=== PATIENT | female | born 1960 | race Caucasian/White ===

== ENCOUNTER 2024-03-31 15:05 | Inpatient (IN) | payer OTHER, SELFPAY ==
[2024-03-31 11:14] VITALS: BP 155/88
[2024-03-31 11:38] LABS: Hematocrit 40.9 % (37.0-47.0); Hemoglobin 14.2 g/dL (12.0-16.0); Mean Corp Hgb Conc. 34.7 g/dL (33.0-37.0); Mean Corpuscular Hgb 28.8 pg (27.0-31.0); Mean Platelet Volume 10.4 fL (7.4-10.4); Platelet Count 208 10^3/uL (130-400); Red Blood Cell Count 4.93 10^6/uL (4.20-5.40); Red Cell Dist. Width 14.2 % (11.5-14.5); White Blood Cell Count 46.4 10^3/uL (4.8-10.8)
[2024-03-31 11:55] LABS: ALT (SGPT) 20 U/L (0-35); AST (SGOT) 23 U/L (14-36); Albumin 4.6 g/dl (3.5-5.0); Alkaline Phosphatase 94 U/L (38-126); Blood Urea Nitrogen 18 mg/dl (7-17); Calcium 9.9 mg/dl (8.4-10.2); Carbon Dioxide 25 mmol/L (22-30); Chloride 108 mmol/L (98-107); Glucose 123 mg/dl (70-99); Potassium 3.7 mmol/L (3.5-5.1); Sodium 140 mmol/L (135-145); Total Bilirubin 0.6 mg/dl (0.2-1.3); Total Protein 7.1 g/dl (6.3-8.2); eGFR > 60.00
[2024-03-31 11:58] LABS: Troponin I < 0.012 ng/ml
[2024-03-31 12:13] LABS: Absolute Neutrophils -Man Diff 7.8 10^3/uL (1.4-6.5); Atypical Lymphocytes 14 %; Band Neutrophils 0 % (0-3); Eosinophils 1 % (0-6); Lymphocytes 66 % (20-51); Monocytes 2 % (2-9); Normal RBC Morphology Yes; Platelets Checked Yes; Segmented Neutrophils 17 % (42-75); Total Cells Counted 100
[2024-03-31 12:50] VITALS: BMI 29.6
--- NOTE | 2024-03-31 13:41 | ED.GENMED ---
History of Present Illness
General
Chief Complaint: Headache
Source: patient
Exam Limitations: none
Time Seen by Provider: 03/31/24 12:49
Nursing documentation reviewed up to this point in time: agreed with
History of Present Illness
History of Present Illness:
Patient with history of CLL, diagnosed 4 years ago, not requiring treatment, being followed with serial blood work, presents ED secondary to 2-week history of persistent right-sided/frontal headache along with difficulty walking noted over the past
24 hours, by her daughter. Patient has taken Excedrin headache medication as an outpatient, with minimal relief in symptoms. Denies blurred vision. Denies loss of sensation or weakness. Denies difficulty with speech. Denies nausea or vomiting.
Review of Systems
Review of Systems
Allergies reviewed?: Yes
All Other Systems: ROS reviewed and negative except as documented in HPI and ROS
Constitutional: Reports no symptoms
Respiratory: Reports no symptoms
Cardiac: Reports no symptoms
ABD/GI: Reports no symptoms
Musculoskeletal: Reports no symptoms
Skin: Reports no symptoms
Neurological: Reports headache
Phy Exam
Physical Exam
Physical Exam:
Physical Exam
General: no apparent distress, not acutely ill. afebrile
Head: nc/at. eomi
Neck: supple. no meningeal signs.
Heart: s1/s2 regular rate and rhythm, no murmur. equal radial pulses.
Lungs: no acute respiratory distress. clear bilaterally
Abdomen: normal bowel sounds. not tender.
Neuro: alert and oriented. no focal neurological deficits. normal speech
Skin: no rash
Psychiatric: well kept. interactive and cooperative
Extremities: no edema. no calf tenderness.
Course
Orders/Labs/Results
Orders:
Orders
03/31/24 11:17
Electrocardiogram (*1) Urgent
Reason for Study: Vertigo / Dizzy
CT Head W/o Iv Contrast Urgent
Comment:
Reason For Exam: dizziness
03/31/24 11:18
EKG- Treatment ONCE
03/31/24 11:28
Complete Blood Count/With Diff Urgent
Comprehensive Metabolic Panel Urgent
Manual Differential Urgent
Troponin I Urgent
03/31/24 13:41
Dexamethasone Sod Phosphate [Decadron] 10 mg IV NOW STA
03/31/24 13:43
LDH Urgent
03/31/24 14:37
Admit/Transfer Patient As Directed
Co-Sign Provider:
Level of Care: Inpatient admission
Assign to:: Medical/Surgical
Physician / Group: Alin Diego
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
Expected length of stay greater than two midnights?: Yes
ELOS- Estimated Length of Stay in days: 3
I certify the patient meets the requirements for IP care: Yes
03/31/24 14:39
Code Status As Directed
Resuscitation Status: Full Code
03/31/24 14:46
ONCOLOGY CONSULT Routine
Consulting Provider: Mika Nagel
Was physician already notified: Yes
Reason for consult: metastatic CLL of brain
03/31/24 14:47
Neurosurgery Consult Routine
Consulting Provider: Shun Lares
Was physician already notified: Yes
Reason for Consult: metastatic brain lymphoma
03/31/24 Dinner
Regular
At Your Request: Full Participation
Does patient need a safe tray?: No
Liquid Modification: Thin Liquids
03/31/24 16:39
Acetaminophen [Tylenol] 650 mg PO Q4HPRN PRN
Bisacodyl [Dulcolax] 10 mg RECTAL [id number] PRN
Docusate W/Senna [Senokot-S] 1 tablet PO BIDPRN PRN
HYDROmorphone [Dilaudid] 0.5 mg IV Q4HPRN PRN
Lorazepam [Ativan] 2 mg IV Q5M PRN
Ondansetron Injectable [Zofran] 4 mg IV Q6HPRN PRN
Oxycodone [Roxicodone] 5 mg PO Q4HPRN PRN
Polyethylene Glycol Powder [Miralax] 17 grams PO DAILYPRN PRN
03/31/24 16:39
Activity As Directed
Activity Level: With Assistance
Neurological Checks As Directed
Frequency: q4h
Pneumatic Compression Sleeves As Directed
Type: Knee high
Precautions As Directed
Type of Precautions: Seizure
Vital Signs As Directed
Frequency: Per unit guidelines
DX Deep Vein Thrombosis Video Routine
03/31/24 21:00
Dexamethasone Sod Phosphate [Decadron] 10 mg IV Q8H
03/31/24 22:00
Amlodipine Besylate/Benazepril [Lotrel 5 mg/20 mg] 2 capsule PO HS
Ezetimibe [Zetia] 10 mg PO HS
Rosuvastatin Calcium [Crestor] 20 mg PO HS
04/01/24 06:00
Basic Metabolic Panel IN AM
Complete Blood Count/No Diff IN AM
MRI Brain [MR Brain W/o & With Contrast] IN AM
Comment:
Reason For Exam: brain lymphoma, vasogenic edema
Recent pill cam endoscopy?: No
04/02/24 06:00
Basic Metabolic Panel IN AM
Complete Blood Count/No Diff IN AM
Abnormal Lab Results
03/31/24 03/31/24
11:28 13:43
WBC 46.4 H* 10^3/uL
(4.8-10.8)
Abs Neuts (Manual) 7.8 H 10^3/uL
(1.4-6.5)
Segmented Neutrophils 17 L %
(42-75)
Lymphocytes (Manual) 66 H %
(20-51)
Chloride 108 H mmol/L
(98-107)
BUN 18 H mg/dl
(7-17)
Creatinine 0.5 L mg/dL
(0.6-1.0)
Glucose 123 H mg/dl
(70-99)
Lactate Dehydrogenase 258 H U/L
(120-246)
03/31/24 11:28
03/31/24 11:28
Vital Signs
Initial and Last Documented VS:
Initial Vital Signs
Temp Pulse Resp BP Pulse Ox
98.1 F 68 18 155/88 96
03/31/24 11:14 03/31/24 11:14 03/31/24 11:14 03/31/24 11:14 03/31/24 11:14
Last Documented Vital Signs
Temp Pulse Resp BP Pulse Ox
98.3 F 86 16 160/89 93
03/31/24 16:46 03/31/24 16:46 03/31/24 16:46 03/31/24 16:46 03/31/24 17:25
MDM/Problems Addressed
MDM/Problems Addressed:
CT head report reviewed and discussed with on-call oncology, Dr. Nagel, as well as neurosurgery, Dr. Lares. Recommends admission on IV Decadron 10 mg every 8 hours, along with MRI brain with and without contrast. Further recommendations to be
provided after MRI is performed.
*Critical Care Note
Total Time (30-74mins, 75-104mins- exclusive of procedures): Not Applicable
ED Attending Note
-
Portions of this chart may have been created with voice recognition software.� Occasional wrong word or��sound alike� substitutions may have occurred due to the inherent limitations of voice recognition software.
Discharge Plan
Departure
Patient Disposition: Admit
Date of Disposition: 03/31/24
Time of Disposition: 13:46
Presentation/result/management discussed w/ accepting MD/DO: Hospitalist
Discharge Problem:
Brain mass
Interventions
Interventions:
*Risk Screen - Suicide Last Done: 03/31/24 16:49
*General Assessment Last Done: 03/31/24 11:14
*Neglect/Abuse Screening Last Done: 03/31/24 11:14
ED- Fall Risk Assessment Last Done: 03/31/24 12:50
*ED COVID-19 Vaccine History Last Done: 03/31/24 12:50
*Nursing Disposition Last Done: 03/31/24 16:40
ED- Neurological Assessment Last Done: 03/31/24 12:50
Discharge Date and Time
Discharge Date/Time: 03/31/24 16:40
[2024-03-31] MEDS: DECADRON 10 MG IV ×2 (13:43→20:52)
[2024-03-31 13:45] VITALS: BP 142/90
[2024-03-31 14:00] VITALS: BP 107/78
[2024-03-31 14:08] LABS: LDH 258 U/L (120-246)
--- NOTE | 2024-03-31 14:45 | HPS.HSE ---
Family Physician
-
Family Physician: * NONE
Chief Complaint
-
Problem with balance, lower extremity
History of Present Illness
Patient is 63-year-old female with past medical history of chronic lymphocytic leukemia diagnosed 4 years before not on therapy, essential hypertension, hyperlipidemia came to ER after having new onset of lower extremity weakness and balance
problem. Symptom has been slowly progressive and intermittent in nature for last few weeks. Patient is visiting from [place] and all primary physicians are in [place]. Patient daughter noted that patient was having difficulty walking with
patient dragging right foot at 1 point. Patient was also having right sided headache and has been taking Excedrin without much help. No associated nausea/vomiting. Patient denies of having any episodes of seizures/tremors/numbness/paresthesia.
No change in vision/dysarthria/dysphagia. Patient denies of having any fever/night sweats/weight loss.
No cardiopulmonary or abdominal complaints
Medical History
Past Medical History
Past Medical History: Reports Other
Additional Past Medical History:
chronic lymphocytic leukemia diagnosed 4 years before not on therapy, essential hypertension, hyperlipidemia
Past Surgical History: Reports Other
Social History
Tobacco: Smoker (Half pack/day)
Alcohol: Occasional
Drug: None
Living: With Family
Family History
Family History: Not pertinent
Allergies / Home Medications
Allergies reflects when Allergies were last updated in [facility].
Home Medications with original date entered in [facility]
Allergy/Medication List:
Allergies
Allergy/AdvReac Type Severity Reaction Status Date / Time
No Known Allergies Allergy Unverified 03/31/24 11:14
Home Medications
amlodipine 5 mg-benazepril 20 mg capsule 2 cap PO HS 03/31/24
apple cider vinegar 500 mg tablet 500 mg PO DAILY 03/31/24
trrsvqj-hvzktybdtvfpz-kvdtwwmz 250 mg-250 mg-65 mg tablet (Excedrin Migraine) 4 tab PO DAILYPRN PRN mildpain 07/27/24
chlorthalidone 25 mg tablet 25 mg PO HS 03/31/24
ezetimibe 10 mg tablet 10 mg PO HS 03/31/24
rosuvastatin 20 mg tablet 20 mg PO HS 03/31/24
therapeutic multivitamin 1 tab PO DAILY 03/31/24
Review of Systems
-
A 12 point ROS was completed and negative except as noted: Yes
Physical Exam
Vital Signs
Vital Signs
Temp Pulse Resp BP Pulse Ox
98.1 F 70 18 107/78 96
03/31/24 11:14 03/31/24 14:15 03/31/24 14:00 03/31/24 14:00 03/31/24 14:15
Physical Exam
General: No Apparent Distress
HEENT: Atraumatic; No Oxygen
Respiratory: Clear
Cardiac: S1/S2 and Regular Rhythm; No Murmur or Rub
GI: Soft, Non Tender, Non Distended and Normal Bowel Sounds; No Organomegaly
Rectal: Deferred by Provider
Musculoskeletal: No Clubbing, No Cyanosis and No Edema
Skin: No Rash
Neuro: Nonfocal/grossly intact
Laboratory Results
-
03/31/24 11:28
03/31/24 11:28
Laboratory Results
Total Bilirubin 0.6 mg/dl (0.2-1.3) 03/31/24 11:28
AST 23 U/L (14-36) 03/31/24 11:28
ALT 20 U/L (0-35) 03/31/24 11:28
Alkaline Phosphatase 94 U/L (38-126) 03/31/24 11:28
Troponin I < 0.012 ng/ml 03/31/24 11:28
Data Reviewed
-
Lab Data: Labs Reviewed by me, Discussed with Patient and Discussed with Family
Impression/Plan
-
CT head
1. Large regions of severe vasogenic edema in the right frontal lobe and right parietal lobe. Smaller regions of vasogenic edema in the left frontal lobe, left parietal lobe, and right cerebellar hemisphere. Associated sulcal effacement in the
right frontal and parietal lobes. Diagnostic possibilities are (1) MULTIFOCAL INTRAPARENCHYMAL BRAIN METASTASES or (2) multifocal opportunistic infection.
2. Mild diffuse cerebral volume loss.
3. No CT evidence for acute intracranial hemorrhage.

1. Acute ataxia
Presumed brain lymphoma with vasogenic edema
-Patient having some ideational apraxia/ataxia at times
-CT head showing multiple area of vasogenic edema, left frontal/parietal/cerebellar hemisphere.
-Start on dexamethasone IV 10mg q8h for treatment.
-MRI brain with and without contrast ordered
-Monitor for seizure activity, maintain on PRN ativan for now
-Neurosurgery and hematology oncology has been consulted
2. CLL
-Patient with history of CLL for 4 years and have not been required any treatment
-Blood work from January 25 showing total WBC of 25 K with lymphocyte 70%
-Patient to primary oncologist [place] and visiting [place] currently. was planning to travel back today but came in to ER for having neuro symptoms
-TWBC 46.5k with Lymphocyte 66%, 0% band. ANC of 4.8k
3. Essential HTN
-Continue amlodipine and benazepril, hold on chlorthalidone
-BP soft in er
4. Headache
-Secondary to vasogenic edema of brain tissue
-Provide Tylenol as needed
DVT PPX - full code
SCD
Total time spent : 76 mins
I personally saw and examined the patient.
I have reviewed all diagnostic interpretations and treatment plans as written.
Time includes patient management by me, time spent at the patients bedside, time to review lab and imaging results, discussing patient care, documentation in the medical record, and time spent with the family or caregiver and discussing care plan
with RN/Consultants.
[2024-03-31 15:00] VITALS: BP 149/89
[2024-03-31 16:46] VITALS: BP 160/89; BMI 28.6
--- NOTE | 2024-03-31 17:27 | PTCARENOTE ---
Received pt from ER via stretcher, accompanied by ER staff. Pt AAO x3, FREY well; ambulatory to bed, no c/o weakness/dizziness/headache. Fall prec initiated. VSS. On room air- pulseox 93%, no SOB noted. Abd soft, rounded, to start reg diet. Pt
DTV; will void in BR. Afebrile; skin intact. Oriented to 4east, currently resting in bed, no c/o; family members at bedside. Will continue to monitor.
[2024-03-31] MEDS: ZETIA 10 MG PO (20:53)
[2024-03-31] MEDS: LOTREL 5 MG/20 MG 2 CAPSULE PO (20:53)
[2024-03-31] MEDS: CRESTOR 20 MG PO (20:53)
[2024-03-31] MEDS: DILAUDID 0.5 MG IV (21:04)
[2024-03-31 23:30] VITALS: BP 126/79
[2024-04-01] MEDS: DECADRON 10 MG IV ×2 (06:14→13:27)
[2024-04-01 06:46] LABS: Hematocrit 39.8 % (37.0-47.0); Hemoglobin 13.6 g/dL (12.0-16.0); Mean Corp Hgb Conc. 34.2 g/dL (33.0-37.0); Mean Corpuscular Hgb 29.4 pg (27.0-31.0); Mean Platelet Volume 11.6 fL (7.4-10.4); Platelet Count 212 10^3/uL (130-400); Red Blood Cell Count 4.63 10^6/uL (4.20-5.40); Red Cell Dist. Width 14.1 % (11.5-14.5); White Blood Cell Count 62.1 10^3/uL (4.8-10.8)
[2024-04-01 07:00] LABS: Blood Urea Nitrogen 27 mg/dl (7-17); Calcium 9.8 mg/dl (8.4-10.2); Carbon Dioxide 25 mmol/L (22-30); Chloride 103 mmol/L (98-107); Estimated Creatinine Clearance 91 ml/min; Glucose 251 mg/dl (70-99); Potassium 3.7 mmol/L (3.5-5.1); Sodium 140 mmol/L (135-145); eGFR > 60.00
[2024-04-01 07:05] VITALS: BP 110/63
--- NOTE | 2024-04-01 09:56 | CON.ONC ---
Impression
Impression
Malignant L[employer] disease presumed based on CT findings
Acute ataxia
Chronic lymphocytic leukemia on expectant observation
Hypertension
Plan
Plan
Await further detail provided by MRI
Patient does have cats so toxoplasmosis is a consideration
LDH only slightly elevated
Consider CT scan chest abdomen pelvis to rule out primary if MRI most consistent with metastatic disease
Dexamethasone initiated with symptomatic improvement
Differential continues to include metastatic solid tumor, NHL and less likely atypical infection given she has had no treatment for CLL
No objection to patient transferring her care back to [place]
Would discharge on dexamethasone 8 mg every 8 and PPI
Patient History
History of Present Illness
Patient is 63-year-old female with past medical history of chronic lymphocytic leukemia diagnosed 4 years before not on therapy, essential hypertension, hyperlipidemia came to ER after having new onset of lower extremity weakness and balance
problem. Symptom has been slowly progressive and intermittent in nature for last few weeks. Patient is visiting from [place] and all primary physicians are in [place]. Patient daughter noted that patient was having difficulty walking with
patient reportedly dragging her right foot. Patient was also having right sided headache and has been taking Excedrin without relief. Patient denies of having any episodes of nausea/vomiting seizures/tremors/numbness/paresthesia. No change in
vision/dysarthria/dysphagia. Patient denies of having any fever/night sweats/weight loss.
Past-Medical/Surgical History
Past Medical History
Chronic lymphocytic leukemia diagnosed 4 years before not on therapy, essential hypertension, hyperlipidemia
Past Surgical History none
Social History
Tobacco: Smoker (Half pack/day)
Alcohol: Occasional
Drug: None
Living: With Family
Family History
Family History: Not pertinent
Patient Medication
�Medication �Instructions �Recorded �Confirmed �Last Taken �Type
amlodipine 5 mg-benazepril 20 mg 2 cap PO HS 03/31/24 03/31/24 03/30/24 22:00 History
capsule
apple cider vinegar 500 mg tablet 500 mg PO DAILY 03/31/24 03/31/24 03/30/24 12:00 History
pblkwfb-zcjvjxejdmplw-kdjekgkp 250 4 tab PO DAILYPRN PRN mildpain 03/31/24 03/31/24 03/31/24 10:00 History
mg-250 mg-65 mg tablet (Excedrin
Migraine)
chlorthalidone 25 mg tablet 25 mg PO HS 03/31/24 03/31/24 03/30/24 22:00 History
ezetimibe 10 mg tablet 10 mg PO HS 03/31/24 03/31/24 03/30/24 22:00 History
rosuvastatin 20 mg tablet 20 mg PO HS 03/31/24 03/31/24 03/30/24 22:00 History
therapeutic multivitamin 1 tab PO DAILY 03/31/24 03/31/24 03/30/24 10:00 History
Active Medications
Generic Name Dose Route Start Last Admin
Trade Name Freq PRN Reason Stop Dose Admin
Acetaminophen 650 mg 03/31/24 16:39
Acetaminophen 325 Mg Tablet PO 04/28/24 16:38
Q4HPRN PRN
mild pain/MURILLO/temp> 100.4F
Amlodipine/Benazepril HCl 2 capsule 03/31/24 22:00 03/31/24 20:53
Amlodipine Besylate 5/Benazepril 20 (Same As Lotrel) Capsule PO 04/28/24 21:59 2 capsule
HS TROY Administration
Bisacodyl 10 mg 03/31/24 16:39
Bisacodyl 10 Mg Rectal Suppository RECTAL 04/28/24 16:38
[id number] PRN
constipation
Dexamethasone Sodium Phosphate 10 mg 03/31/24 21:00 04/01/24 06:14
Dexamethasone (4 Mg/Ml) 20 Mg/5 Ml Vial IV 04/28/24 20:59 10 mg
Q8H TROY Administration
Ezetimibe 10 mg 03/31/24 22:00 03/31/24 20:53
Ezetimibe (Zetia) 10 Mg Tablet PO 04/28/24 21:59 10 mg
HS TROY Administration
Hydromorphone HCl 0.5 mg 03/31/24 16:39 03/31/24 21:04
Hydromorphone 0.5 Mg/0.5 Ml Syringe IV 04/14/24 16:38 0.5 mg
Q4HPRN PRN Administration
severe pain
Lorazepam 2 mg 03/31/24 16:39
Lorazepam 2 Mg/Ml Vial IV
Q5M PRN
seizure episode
Ondansetron HCl 4 mg 03/31/24 16:39
Ondansetron 4 Mg/2 Ml Vial IV 04/28/24 16:38
Q6HPRN PRN
nausea and vomiting
Oxycodone HCl 5 mg 03/31/24 16:39
Oxycodone 5 Mg Regular Release Tablet PO 04/14/24 16:38
Q4HPRN PRN
moderate pain
Polyethylene Glycol 17 grams 03/31/24 16:39
Polyethylene Glycol Powder 17 Grams Packet PO 04/28/24 16:38
DAILYPRN PRN
constipation
Rosuvastatin Calcium 20 mg 03/31/24 22:00 03/31/24 20:53
Rosuvastatin (Crestor) 20 Mg Tablet PO 04/28/24 21:59 20 mg
HS TROY Administration
Senna/Docusate Sodium 1 tablet 03/31/24 16:39
Docusate W/Senna (Georgette-Colace) Tablet PO 04/28/24 16:38
BIDPRN PRN
constipation
Sodium Chloride 0 flush 03/31/24 17:00
Sodium Chloride 0.9% (Flush) Syringe IV 04/28/24 16:59
PER PROTOCOL TROY
Review of Systems
-
12 point review systems unremarkable other than those noted complaints and the HPI
Physical Exam
-
Physical Exam
General: No Apparent Distress
HEENT: Atraumatic; no scleral icterus
Respiratory: Clear
Cardiac: S1/S2 and Regular Rhythm; No Murmur or Rub
GI: Soft, Non Tender, Non Distended and Normal Bowel Sounds; No Organomegaly
Musculoskeletal: No Clubbing, No Cyanosis and No Edema
Skin: No Rash
Neuro: Nonfocal/grossly intact
Labs
Lab Results
WBC 62.1 10^3/uL (4.8-10.8) H* 04/01/24 06:18
RBC 4.63 10^6/uL (4.20-5.40) 04/01/24 06:18
Hgb 13.6 g/dL (12.0-16.0) 04/01/24 06:18
Hct 39.8 % (37.0-47.0) 04/01/24 06:18
MCV 86.0 fL (81.0-99.0) 04/01/24 06:18
MCH 29.4 pg (27.0-31.0) 04/01/24 06:18
MCHC 34.2 g/dL (33.0-37.0) 04/01/24 06:18
RDW 14.1 % (11.5-14.5) 04/01/24 06:18
Plt Count 212 10^3/uL (130-400) 04/01/24 06:18
MPV 11.6 fL (7.4-10.4) H 04/01/24 06:18
Creatinine 0.6 mg/dL (0.6-1.0) 04/01/24 06:18
Vital Signs
Vital Signs
Temp Pulse Resp BP Pulse Ox
97.3 F 87 16 110/63 94
04/01/24 07:05 04/01/24 07:05 04/01/24 07:05 04/01/24 07:05 04/01/24 07:05
--- NOTE | 2024-04-01 10:03 | CON.NS ---
Chief Complaint
-
Abnormal CT head
History of Present Illness
This is a 63-year-old female from [place] visiting family. She has a history of CLL. Reportedly not on any chemotherapeutic agents. Last PET scan was in 2021. Follows in [place] with oncology.
She states that she has been having feelings of imbalance and 'funny feeling in her head'. She also notes a headache for a couple weeks. She presented to the ED for evaluation given these complaints CT of the head was completed which showed
multiple areas of hypodensity concerning for metastatic disease. She notes no other symptoms.
Review of Systems
-
10 point review of systems is completed and negative except stated in HPI
Medication and Allergies
Home Medications
Home Medications
�Medication �Instructions �Recorded
amlodipine 5 mg-benazepril 20 mg 2 cap PO HS 03/31/24
capsule
apple cider vinegar 500 mg tablet 500 mg PO DAILY 03/31/24
hvhwkiv-nnwfyybzkvnoy-xnweedrc 250 4 tab PO DAILYPRN PRN mildpain 03/31/24
mg-250 mg-65 mg tablet (Excedrin
Migraine)
chlorthalidone 25 mg tablet 25 mg PO HS 03/31/24
ezetimibe 10 mg tablet 10 mg PO HS 03/31/24
rosuvastatin 20 mg tablet 20 mg PO HS 03/31/24
therapeutic multivitamin 1 tab PO DAILY 03/31/24
Allergies
Allergies
Allergy/AdvReac Type Severity Reaction Status Date / Time
No Known Allergies Allergy Unverified 03/31/24 16:47
Physical Exam
-
Exam:
Awake alert and oriented x 3
Cranial nerves II through XII are grossly intact
Motor strength testing reveals 5-5 upper and lower extremity strength
No upper extremity lower extremity drift
Reflexes normal
Sensory normal
CT head shows bilateral areas of hypodensity in the supratentorial infratentorial spaces. Concerning for metastatic disease
Problems
-
Problem Status Onset Code
Brain mass G93.89
Assessment / Plan
-
Likely cerebral metastasis
1. Given her history of CLL this likely represents metastatic lymphoma. She requires MRI of the brain with and without contrast
2. Okay to continue steroids in the setting however if she does need a brain biopsy would recommend holding steroids.
3. No acute neurosurgical interventions at this time
4. She will likely be able to go back to [place] for her care. I discussed this with her she will not be allowed to drive herself. She stated that her family is aware already and will likely aid in her return back home
5. Will await MRI determine further care
[2024-04-01] MEDS: OMNIPAQUE 50 ML PO (13:25)
[2024-04-01] MEDS: PROTONIX 40 MG PO (13:28)
--- NOTE | 2024-04-01 14:03 | W.PN.HOSP.TC ---
Today's Communication/Plan
-
CT c/a/p ordered
possible discharge today
Assessment / Plan
Assessment / Plan
CT head
1. Large regions of severe vasogenic edema in the right frontal lobe and right parietal lobe. Smaller regions of vasogenic edema in the left frontal lobe, left parietal lobe, and right cerebellar hemisphere. Associated sulcal effacement in the
right frontal and parietal lobes. Diagnostic possibilities are (1) MULTIFOCAL INTRAPARENCHYMAL BRAIN METASTASES or (2) multifocal opportunistic infection.
2. Mild diffuse cerebral volume loss.
3. No CT evidence for acute intracranial hemorrhage.
MRI brain w/wo contrast
Findings most in keeping with numerous scattered intracranial metastases as described, with associated vasogenic edema. Less likely differential includes infectious/inflammatory or demyelinating processes.

1. Acute ataxia
Presumed brain lymphoma with vasogenic edema
-Patient having some ideational apraxia/ataxia at times
-CT head showing multiple area of vasogenic edema, left frontal/parietal/cerebellar hemisphere.
-Start on dexamethasone IV 10mg q8h for treatment.
-MRI brain with and without contrast showing likely scattered intracranial metastasis with associated vasogenic edema
-A follow-up CT chest abdomen pelvis ordered
-Neurosurgery and oncology input reviewed
-If no major acute abnormality on CT chest abdomen pelvis patient can be discharged home with follow-up with primary oncologist in next 3 to 5 days
2. CLL
-Patient with history of CLL for 4 years and have not been required any treatment
-Blood work from January 25 showing total WBC of 25 K with lymphocyte 70%
-Patient to primary oncologist in [place] and visiting [place] currently. was planning to travel back today but came in to ER for having neuro symptoms
-TWBC 46.5k with Lymphocyte 66%, 0% band. ANC of 4.8k
3. Essential HTN
-Continue amlodipine and benazepril, hold on chlorthalidone
-BP soft in er
4. Headache
-Secondary to vasogenic edema of brain tissue
-Provide Tylenol as needed
DVT PPX - full code
SCD
Anticipated Discharge: Within 24 hours
Subjective/Interval History
-
Date of Service: April 01, 2024
No new complaints overnight
Objective Data
-
Labs:
Laboratory Results
04/01/24
06:18
WBC 62.1 H*
Hgb 13.6
Hct 39.8
Plt Count 212
Sodium 140
Potassium 3.7
Chloride 103
Carbon Dioxide 25
BUN 27 H
Creatinine 0.6
Glucose 251 H
Calcium 9.8
Vital Signs:
Vital Signs
Temp Pulse Resp BP Pulse Ox
97.3 F 87 16 110/63 94
04/01/24 07:05 04/01/24 07:05 04/01/24 07:05 04/01/24 07:05 04/01/24 13:10
I&O
03/31/24 04/01/24 04/02/24
06:59 06:59 06:59
Intake Total 720 / 720
Balance 720 / 720
Review of Systems
-
Respiratory: Reports No Symptoms
Cardiac: Reports No Symptoms
Abdomen/GI: Reports No Symptoms
Physical Exam
-
General: Negative Appears in Distress
HEENT: Negative Oxygen
Neuro: Awake, Alert, Oriented and No Motor Deficits
--- NOTE | 2024-04-01 14:05 | W.DCSUMMARY ---
Discharge Summary
Discharge Data
Date of Admission: 03/31/24
Date of Discharge: 04/01/24
-
Pending Results: No
Hospital Course
Discharging Physician : Dr Alin Diego
Disposition : Home
Primary care physician : Unknown
Principal Discharge diagnosis :
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
Chronic Discharge diagnosis :
History of chronic lymphocytic leukemia
Essential hypertension
Hospital Course :
Patient is a 63-year-old female with mentioned past medical history came to ER with having worsening lower extremity weakness and balance issues. Patient was also at times noted to having difficulty doing complex things. CT head done in ER was
showing patient having possible multiple lesion with vasogenic edema. As patient has history of CLL concern of this being lymphoma in nature. Neurosurgery and oncology was involved in care, and patient was recommended to be started on IV Decadron
for improvement vasogenic edema. Follow-up MRI brain with and without contrast was done which showed similar finding. A CT chest abdomen pelvis was done as well. Patient did not have any other ongoing issues and as patient all primary physicians
in [place], patient was discharged to follow-up with primary oncologist. Patient provided oral dexamethasone course at discharge.
Important imaging findings :
None
Procedure findings :
None
Discharge Plan
-
Patient Disposition: Home (Routine Discharge)
Discharge Diagnosis/Procedures: Presumed metastatic lymphoma
Condition: Fair
Diet: Regular
Activity: As tolerated
Driving Restrictions: No driving
Bathing Restrictions: OK to Shower
Activity Restrictions/Additional Instructions:
Please follow up with your primary oncology within 3-5 days
Referrals:
NONE,* [Family Provider] -
Prescriptions:
New
dexamethasone 4 mg tablet
8 mg PO TID 10 Days Qty: 60 0RF
pantoprazole [Protonix] 40 mg tablet,delayed release (DR/EC)
40 mg PO DAILY Qty: 30 0RF
Continued
therapeutic multivitamin Tablet
1 tab PO DAILY
chlorthalidone 25 mg Tablet
25 mg PO HS
amlodipine-benazepril 5-20 mg Capsule
2 cap PO HS
Excedrin Migraine 250-250-65 mg Tablet
4 tab PO DAILYPRN PRN (Reason: mildpain)
ezetimibe 10 mg Tablet
10 mg PO HS
apple cider vinegar 500 mg Tablet
500 mg PO DAILY
rosuvastatin 20 mg Tablet
20 mg PO HS
Discharge Orders:
Discharge Patient (As Directed); Ordered 04/01/24
Ordered By: Alin Diego
Discharge Date and Time
Print Language: TURKMEN
[2024-04-01 15:00] VITALS: BP 142/84
--- NOTE | 2024-04-01 16:01 | CM ---
Patient out of room again this afternoon. Daughter and family present and confirmed discharge plan, home with no needs. Patient in area to visit her daughter and other family members. Patient normally independent and lives alone in [facility]. Patient and
daughter plan is to leave the hospital and drive straight home. Patient daughter does not know name of family doctor. Patient family have requested information about tests completed here at the hospital and have requested the images. Patient to
follow up with physicians at home. CM will continue to follow for discharge planning needs.
Plan; home with follow up in [facility] with physicians there
== END 2024-04-01 17:34 | disposition home or self-care (01) | DRG 840 ==
LOC: 4 EAST ACU 15:05
PROVIDERS: ADMITTING PHYSICIAN Hospitalist; CONSULT PHYSICIAN Internal Medicine Hematology & Oncology; CONSULT PHYSICIAN Neurological Surgery; EMERGENCY PHYSICIAN Emergency Medicine
DX: C85.99 Non-Hodgkin lymphoma, unspecified, extranodal and solid organ sites (principal); G93.6 Cerebral edema; C91.10 Chronic lymphocytic leukemia of B-cell type not having achieved remission; I10 Essential (primary) hypertension; F17.210 Nicotine dependence, cigarettes, uncomplicated
CPT/HCPCS: 70450; 70553; 71260; 74177; 80048; 80053; 83615; 84484; 85025; 85027; 93005; 96374; 99285; A9575; Q9967